=== PATIENT | male | born 1980 | race Caucasian/White ===

== ENCOUNTER 2018-06-26 01:29 | Emergency (ER) | payer OTHER ==
[~2018-06-26 01:29] MED LIST: Diphtheria,Pertussis(Acell),Tetanus Vaccine 0.5 ML Syringe ONE; fentaNYL 100 MCG/2 ML SDV ONE
[2018-06-26] MEDS ORDERED: fentaNYL 100 MCG/2 ML SDV ONE ×2 (01:41→01:59)
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
[2018-06-26 02:17] LABS: CHLORIDE,CL 107 mmol/L (98-107); SODIUM,NA 140 mmol/L (136-148)
[2018-06-26] MEDS ORDERED: Iopamidol 755 MG/ML 500 ML Multipack Bottle IVPUSH STA (02:46)
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
== END 2018-06-26 03:20 ==
LOC: MW.ED 01:29
DX: S22.41XA Multiple fractures of ribs, right side, initial encounter for closed fracture (principal); S82.92XB Unspecified fracture of left lower leg, initial encounter for open fracture type I or II; S52.91XA Unspecified fracture of right forearm, initial encounter for closed fracture; S01.412A Laceration without foreign body of left cheek and temporomandibular area, initial encounter; S01.81XA Laceration without foreign body of other part of head, initial encounter; S30.1XXA Contusion of abdominal wall, initial encounter; S20.20XA Contusion of thorax, unspecified, initial encounter; V28.9XXA Unspecified motorcycle rider injured in noncollision transport accident in traffic accident, initial encounter
CPT/HCPCS: 29105; 36415; 36556; 51702; 70450; 71045; 71260; 72125; 74177; 80053; 85025; 90471; 96361; 96365; 96374; 96375; 99291; 99292; G0390; J0696; J3010; Q9967; 72128; 72128-26; 72131; 72131-26